=== PATIENT | female | born 1965 | race Caucasian/White ===

== ENCOUNTER → 2020-09-15 | Day surgery (SDC) | payer OTHER ==
[~2020-09-15] MED LIST: AMITIZA8 MCG PO; CLEOCIN300 MG PO; MOTRIN600 MG PO; PERCOCET 5-3251 EACH PO; PHENERGAN25 M1 PO; VENTOLIN (2.5 MG/3 M INH
[2020-09-15 11:03] LABS: BASOPHIL 1.4 % (0-2); EOSINOPHIL 2.3 % (0-5); HCT 38.8 % (37.0-47.0); LYMPHOCYTE 35.2 % (15-48); MCH 33.6 pg (25.0-31.0); MCHC 33.5 g/dL (32.0-36.0); MCV 100.3 fL (78.0-100.0); MONOCYTE 8.1 % (0-12); MPV 10.4 fL (6.0-9.5); NEUTROPHIL 52.1 % (41-80); NRBC 0; PLT 300 K/uL (150-400); RBC 3.87 M/uL (4.20-5.40); RDW 13.1 % (11.5-14.0); WBC 6.5 K/uL (4.0-10.5)
== END | disposition home or self-care (01) ==
LOC: FAS 10:18
PROVIDERS: Oral & Maxillofacial Surgery
DX: M27.8 Other specified diseases of jaws (principal); K02.9 Dental caries, unspecified; D64.9 Anemia, unspecified; Z88.0 Allergy status to penicillin; Z88.8 Allergy status to other drugs, medicaments and biological substances; J44.9 Chronic obstructive pulmonary disease, unspecified; F17.210 Nicotine dependence, cigarettes, uncomplicated
CPT/HCPCS: 36415; 71045; 85025; 93005; J1100; J1170; J1885; J2250; J2405; J2704; J3010; J7030; J7120